=== PATIENT | female | born 1945 | race Caucasian/White ===

== ENCOUNTER 2020-01-14 12:12 | Outpatient (CLI) | payer MEDICARE, OTHER, SELFPAY ==
--- NOTE | 2020-01-14 12:21 | XR_ITS ---
WS: [id number] XR knee LT 3V* [id number] REASON FOR EXAM: pain FINDINGS: A low riding patellas seen. There is mild degenerate changes of the patellofemoral articulation. The meniscal spaces are well preserved. No fractures or other dyscrasias. XR/XR knee LT 3V* [id number] IMPRESSION: Patella Vergae (low riding patella) Mild degenerate changes of the patellofemoral articulation.
--- NOTE | 2020-01-14 12:21 | XR_ITS ---
WS: [id number] XR lumbar spine f/e only [id number] REASON FOR EXAM: low back pain FINDINGS: There is evidence of vertebral plasty of the L5 vertebra. The remaining disc spaces and vertebral bodies were normal. XR/XR lumbar spine f/e only [id number] IMPRESSION: Vertebral plasty changes L5.
== END 2020-01-14 12:13 | disposition home or self-care (01) ==
LOC: RAD 12:18
PROVIDERS: Family Provider Nurse Practitioner Family; PCP Nurse Practitioner Family; Visit Provider Nurse Practitioner Family
DX: M22.42 Chondromalacia patellae, left knee (principal); M17.12 Unilateral primary osteoarthritis, left knee; M54.5 Low back pain; M54.16 Radiculopathy, lumbar region
CPT/HCPCS: 72120; 73562

== ENCOUNTER 2020-02-12 12:27 | Outpatient (CLI) | payer MEDICARE, OTHER, SELFPAY ==
--- NOTE | 2020-02-12 12:33 | MR_ITS ---
WS: [id number] MRI LUMBAR SPINE NONCONTRAST TECHNIQUE: Sagittal T1, T2 and STIR imaging. Axial T1 and T2 imaging. CLINICAL INFORMATION: RADICULOPATHY, SITE UNSPECIFIED COMPARISON: None. FINDINGS: Mild lumbar curve. No acute compression. Prior vertebroplasty changes L5. Mild disc bulging L2-3 L4-5 and L5-S1. Slight anterolisthesis L4 on L5. L1-L2: Normal. L2-L3: Mild annular bulging. Mild facet arthropathy. Mild right and no significant left foraminal watson rowing. Spinal canal is patent. L3-L4: Mild annular bulging with a small right pericentral protrusion. Slight impingement right subar ticular recess and traversing L4 nerve root. Mild right and no significant left foraminal narrowing. Moderate facet arthropathy. L4-L5: Mild annular bulging with mild central canal stenosis and slight effacement of ventral thecal sac. Mild right and no significant left foraminal narrowing. Moderate facet arthropathy. L5-S1: Mild disc bulging with osteophytic ridging. Mild left greater than right foraminal narrowing. Moderate facet arthropathy. Spinal canal is patent. Visualized pelvic bony structures: Normal. Paravertebral soft tissues: Normal. MR/MR lumbar spine wo con* [id number] IMPRESSION: 1. Mild lumbar curve. Prior vertebroplasty changes L5. Slight anterolisthesis L4 on L5. 2. Mild central canal stenosis L4-5 due to slight anterolisthesis with disc b ulging and facet arthropathy. Narrowing of the right greater than left subartic ular recess with mild right foraminal narrowing. 3. Small right pericentral protrusion L3-4 impinges the right subarticular rec ess and traversing L4 nerve root. Mild right foraminal narrowing. 4. Disc osteophyte complex L5-S1 with slight effacement of ventral thecal sac. Mild left foraminal narrowing. 5. Moderate facet arthropathy L3-L5.
== END 2020-02-12 12:28 | disposition home or self-care (01) ==
LOC: RADWPI 12:32
PROVIDERS: Family Provider Nurse Practitioner Family; PCP Nurse Practitioner Family; Visit Provider Nurse Practitioner Family
DX: M54.9 Dorsalgia, unspecified (principal); M54.10 Radiculopathy, site unspecified; M51.36 Other intervertebral disc degeneration, lumbar region; M47.897 Other spondylosis, lumbosacral region; M48.061 Spinal stenosis, lumbar region without neurogenic claudication; M25.78 Osteophyte, vertebrae; M47.816 Spondylosis without myelopathy or radiculopathy, lumbar region
CPT/HCPCS: 72148

== ENCOUNTER → 2020-03-16 10:24 | Outpatient (BNVA) | payer MEDICARE, OTHER, SELFPAY | PROVIDERS: Family Provider Nurse Practitioner Family; PCP Nurse Practitioner Family; Referring Provider Nurse Practitioner Family; Visit Provider Specialist | DX: M25.569 Pain in unspecified knee (principal); M23.304 Other meniscus derangements, unspecified medial meniscus, left knee | CPT/HCPCS: 73560; 73565 ==

== ENCOUNTER → 2020-04-15 10:02 | Outpatient (BNVA) | payer MEDICARE, OTHER, SELFPAY | PROVIDERS: Family Provider Nurse Practitioner Family; PCP Nurse Practitioner Family; Referring Provider Specialist; Visit Provider Anesthesiology Pain Medicine | DX: M54.41 Lumbago with sciatica, right side (principal); M54.10 Radiculopathy, site unspecified | CPT/HCPCS: 99204 ==

== ENCOUNTER → 2020-04-20 14:19 | Outpatient (BNVA) | payer MEDICARE, OTHER, SELFPAY | PROVIDERS: Family Provider Nurse Practitioner Family; PCP Nurse Practitioner Family; Visit Provider Anesthesiology Pain Medicine | DX: M47.816 Spondylosis without myelopathy or radiculopathy, lumbar region (principal); M54.10 Radiculopathy, site unspecified; M54.9 Dorsalgia, unspecified; Z79.891 Long term (current) use of opiate analgesic | CPT/HCPCS: 64493; 64494; 64495; J2001; J3490 ==

== ENCOUNTER → 2020-05-05 10:16 | Outpatient (BNVA) | payer MEDICARE, OTHER, SELFPAY | PROVIDERS: Family Provider Nurse Practitioner Family; PCP Nurse Practitioner Family; Visit Provider Anesthesiology Pain Medicine | DX: M54.41 Lumbago with sciatica, right side (principal); M54.10 Radiculopathy, site unspecified; M79.604 Pain in right leg | CPT/HCPCS: 99213; 99214 ==

== ENCOUNTER → 2020-05-10 12:02 | Outpatient (BNVA) | payer MEDICARE, OTHER, SELFPAY | PROVIDERS: Family Provider Nurse Practitioner Family; PCP Nurse Practitioner Family; Visit Provider Anesthesiology Pain Medicine | DX: M47.816 Spondylosis without myelopathy or radiculopathy, lumbar region (principal); M54.9 Dorsalgia, unspecified; M54.10 Radiculopathy, site unspecified | CPT/HCPCS: 64635; 64636; 77003; J1030; J2001 ==

== ENCOUNTER → 2020-05-31 08:41 | Outpatient (BNVA) | payer MEDICARE, OTHER, SELFPAY | PROVIDERS: Family Provider Nurse Practitioner Family; PCP Nurse Practitioner Family; Visit Provider Anesthesiology Pain Medicine | DX: M47.816 Spondylosis without myelopathy or radiculopathy, lumbar region (principal); M54.41 Lumbago with sciatica, right side; M54.10 Radiculopathy, site unspecified | CPT/HCPCS: 99213 ==

== ENCOUNTER → 2020-06-09 10:59 | Outpatient (BNVA) | payer MEDICARE, OTHER, SELFPAY | PROVIDERS: Family Provider Nurse Practitioner Family; PCP Nurse Practitioner Family; Referring Provider Nurse Practitioner Family; Visit Provider Nurse Practitioner Family | DX: R32 Unspecified urinary incontinence (principal); N39.0 Urinary tract infection, site not specified | CPT/HCPCS: 80053; 81001 ==

== ENCOUNTER → 2020-06-23 16:11 | Outpatient (BNVA) | payer MEDICARE, OTHER, SELFPAY | PROVIDERS: Family Provider Nurse Practitioner Family; PCP Nurse Practitioner Family; Visit Provider Nurse Practitioner Family | DX: E03.9 Hypothyroidism, unspecified (principal); E55.9 Vitamin D deficiency, unspecified; E78.2 Mixed hyperlipidemia; Z79.899 Other long term (current) drug therapy; D64.9 Anemia, unspecified; R09.81 Nasal congestion | CPT/HCPCS: 36415; 80053; 80061; 81003; 82306; 82607; 83036; 83540; 84443; 85025 ==

== ENCOUNTER → 2020-08-03 14:47 | Outpatient (BNVA) | payer MEDICARE, OTHER, SELFPAY | PROVIDERS: Family Provider Nurse Practitioner Family; PCP Nurse Practitioner Family; Visit Provider Urology | DX: N39.0 Urinary tract infection, site not specified (principal) | CPT/HCPCS: 81001 ==

== ENCOUNTER → 2020-08-23 10:34 | Outpatient (BNVA) | payer MEDICARE, OTHER, SELFPAY | PROVIDERS: Family Provider Nurse Practitioner Family; PCP Nurse Practitioner Family; Visit Provider Nurse Practitioner Family | DX: R53.83 Other fatigue (principal); E55.9 Vitamin D deficiency, unspecified; E78.2 Mixed hyperlipidemia | CPT/HCPCS: 81003; 83036; 85025 ==

== ENCOUNTER → 2020-08-26 11:57 | Outpatient (BNVA) | payer MEDICARE, OTHER, SELFPAY | PROVIDERS: Family Provider Nurse Practitioner Family; PCP Nurse Practitioner Family; Visit Provider Nurse Practitioner Family | DX: R53.83 Other fatigue (principal); E78.2 Mixed hyperlipidemia; E55.9 Vitamin D deficiency, unspecified | CPT/HCPCS: 80053; 80061; 82306; 83735; 84100; 84443 ==

== ENCOUNTER 2020-09-09 08:36 | Outpatient (CLI) | payer MEDICARE, OTHER, SELFPAY ==
--- NOTE | 2020-09-09 08:30 | CT_ITS ---
WS: [id number] CT HEAD NONCONTRAST HISTORY: presyncope TECHNIQUE: Contiguous axial imaging performed through the brain in 2.5 mm imaging. Bone and soft tiss ue windows. All CT scans at [facility] use at least one of these dose optimization techniq ues: automated exposure control; mA and/or kV adjustment per patient size (includes targeted exams wh ere dose is matched to clinical indication); or iterative reconstruction. DLP: 925.91 mGycm COMPARISON: MRI 03/27/2019 No acute intracranial hemorrhage, midline shift or mass effect. Mild cerebral and cerebellar atrophy. There are several small lacunar infarcts in the cerebellum whic h were also present on the prior examination. No obvious progression. Small lacunar infarct in the e xternal capsule on the RIGHT. Ventricles: Normal size with no hydrocephalus. No significant calcification in the distal vertebral arteries of the basilar artery. Moderate calcifi cation in the intracranial carotid arteries. Paranasal sinuses: As visualized are clear. Mastoid air cells: Well pneumatized. Calvarium and scalp: Skull is intact with no soft tissue edema or swelling. CT/CT head wo con* [id number] IMPRESSION: 1. No acute hemorrhage or infarct. 2. Mild atrophy is stable. 3. Small bilateral lacunar infarcts in the cerebellum are stable since 03/27/20 19.
== END 2020-09-09 08:37 | disposition home or self-care (01) ==
PROVIDERS: PCP Nurse Practitioner Family; Visit Provider Family Medicine
DX: R55 Syncope and collapse (principal); G31.9 Degenerative disease of nervous system, unspecified; I63.81 Other cerebral infarction due to occlusion or stenosis of small artery
CPT/HCPCS: 70450

== ENCOUNTER → 2020-09-15 10:58 | Outpatient (BNVA) | payer MEDICARE, OTHER, SELFPAY | PROVIDERS: PCP Nurse Practitioner Family; Visit Provider Urology | DX: N39.0 Urinary tract infection, site not specified (principal); N39.41 Urge incontinence | CPT/HCPCS: 81003 ==

== ENCOUNTER 2020-09-30 13:13 | Outpatient (CLI) | payer MEDICARE, OTHER, SELFPAY ==
--- NOTE | 2020-09-30 13:30 | USCV_ITS ---
Tere Rosas Age: 75 Gender: F : 1945 Exam Date: 09/30/2020 13:34 Ordering Phys: Guillaume Jara MD Technologist: Lisa Padilla Exam Location: [facility] Indication: Weakness Risk Factors: Unknown Previous Vascular Surgery: None Right Brachial BP: / Left Brachial BP: / Right Left Velocity (cm/s) Spectral Plaque Velocity (cm/s) Spectral Plaque Syst/Diast Broadening Syst/Diast Broadening 111.50/19.20 Prox CCA 83.80 / 18.50 93.10/ 21.40 Mid CCA 77.40 / 20.20 59.50/ 15.90 Distal CCA 77.40 / 18.50 108.80/15.00 Prox ICA 67.10 / 13.60 85.30/ 24.40 Mid ICA 59.00 / 10.90 89.10/ 21.60 Distal ICA 65.10 / 17.10 68.70 ECA 50.45 1.17 ICA/CCA 0.87 Antegrade Vertebral Antegrade 48.20/ 12.40 cm/s 30.90/ 8.50 cm/s Tri Subclavian Tri 122.3 103.4 0 0 FINDINGS Comparison: none available. Waveforms are normal. No significant elevation of systolic or diastolic velocities. No significant amount of calcified plaque or intimal thickening identified. CONCLUSIONS Normal carotid doppler ultrasound. Dr. Beatriz Diallo DO (Electronically Signed) Final Date: 30 September 2020 14:34 S
== END 2020-09-30 13:14 | disposition home or self-care (01) ==
LOC: RAD 13:20
PROVIDERS: PCP Nurse Practitioner Family; Visit Provider Family Medicine
DX: R07.9 Chest pain, unspecified (principal); R55 Syncope and collapse; R53.1 Weakness
CPT/HCPCS: 93880

== ENCOUNTER → 2021-04-04 00:01 | Outpatient (BNVA) | payer MEDICARE, SELFPAY | PROVIDERS: PCP Nurse Practitioner Family; Visit Provider Nurse Practitioner Family | DX: E89.0 Postprocedural hypothyroidism (principal) | CPT/HCPCS: 84439; 84443; 86800 ==

== ENCOUNTER → 2021-05-19 09:17 | Outpatient (BNVA) | payer MEDICARE, SELFPAY | PROVIDERS: PCP Nurse Practitioner Family; Visit Provider Anesthesiology Pain Medicine | DX: G89.29 Other chronic pain (principal); M54.5 Low back pain; M54.10 Radiculopathy, site unspecified; M79.604 Pain in right leg; Z87.891 Personal history of nicotine dependence | CPT/HCPCS: 99214 ==

== ENCOUNTER → 2021-05-30 12:32 | Outpatient (BNVA) | payer MEDICARE, SELFPAY | PROVIDERS: PCP Nurse Practitioner Family; Visit Provider Anesthesiology Pain Medicine | DX: G89.29 Other chronic pain (principal); M47.816 Spondylosis without myelopathy or radiculopathy, lumbar region; M54.9 Dorsalgia, unspecified; Z87.891 Personal history of nicotine dependence | CPT/HCPCS: 64493; 64494; 64495; J3490 ==

== ENCOUNTER → 2021-06-06 13:36 | Outpatient (BNVA) | payer MEDICARE, SELFPAY | PROVIDERS: PCP Nurse Practitioner Family; Visit Provider Nurse Practitioner Family | DX: E55.9 Vitamin D deficiency, unspecified (principal); D64.9 Anemia, unspecified | CPT/HCPCS: 81003; 82306; 82607; 82728; 82746; 83550 ==

== ENCOUNTER → 2021-06-12 10:17 | Outpatient (BNVA) | payer MEDICARE, SELFPAY | PROVIDERS: PCP Nurse Practitioner Family; Visit Provider Anesthesiology Pain Medicine | DX: G89.29 Other chronic pain (principal); M47.816 Spondylosis without myelopathy or radiculopathy, lumbar region; M54.10 Radiculopathy, site unspecified; M79.604 Pain in right leg | CPT/HCPCS: 99214 ==

== ENCOUNTER → 2021-07-14 09:06 | Outpatient (BNVA) | payer MEDICARE, SELFPAY | PROVIDERS: PCP Nurse Practitioner Family; Visit Provider Anesthesiology Pain Medicine | DX: G89.29 Other chronic pain (principal); M47.816 Spondylosis without myelopathy or radiculopathy, lumbar region | CPT/HCPCS: 64634; 64635; 64636; J1030 ==

== ENCOUNTER → 2021-07-28 09:46 | Outpatient (BNVA) | payer MEDICARE, SELFPAY | PROVIDERS: PCP Nurse Practitioner Family; Visit Provider Anesthesiology Pain Medicine | DX: G89.29 Other chronic pain (principal); M51.17 Intervertebral disc disorders with radiculopathy, lumbosacral region; M47.816 Spondylosis without myelopathy or radiculopathy, lumbar region; M79.604 Pain in right leg | CPT/HCPCS: 99214 ==

== ENCOUNTER → 2021-08-10 10:38 | Outpatient (BNVA) | payer MEDICARE, SELFPAY | PROVIDERS: PCP Nurse Practitioner Family; Visit Provider Anesthesiology Pain Medicine | DX: G89.29 Other chronic pain (principal); M54.10 Radiculopathy, site unspecified; M47.816 Spondylosis without myelopathy or radiculopathy, lumbar region; M79.604 Pain in right leg | CPT/HCPCS: 99214 ==

== ENCOUNTER → 2021-08-15 11:00 | Outpatient (BNVA) | payer MEDICARE, SELFPAY | PROVIDERS: PCP Nurse Practitioner Family; Visit Provider Nurse Practitioner Family | DX: Z00.00 Encounter for general adult medical examination without abnormal findings (principal); E55.9 Vitamin D deficiency, unspecified; E78.2 Mixed hyperlipidemia; E89.0 Postprocedural hypothyroidism; I10 Essential (primary) hypertension; R53.83 Other fatigue; Z79.899 Other long term (current) drug therapy | CPT/HCPCS: 80053; 80061; 81003; 82306; 82607; 83036; 84443; 85025 ==

== ENCOUNTER → 2021-08-23 12:34 | Outpatient (BNVA) | payer MEDICARE, SELFPAY | PROVIDERS: PCP Nurse Practitioner Family; Visit Provider Anesthesiology Pain Medicine | DX: G89.29 Other chronic pain (principal); M54.16 Radiculopathy, lumbar region | CPT/HCPCS: 62323; J1040; J3490 ==

== ENCOUNTER → 2021-08-29 13:08 | Outpatient (BNVA) | payer MEDICARE, SELFPAY | PROVIDERS: PCP Nurse Practitioner Family; Referring Provider Nurse Practitioner Family; Visit Provider Internal Medicine | DX: C73 Malignant neoplasm of thyroid gland (principal); Z90.89 Acquired absence of other organs; E66.9 Obesity, unspecified; E89.0 Postprocedural hypothyroidism | CPT/HCPCS: 99204 ==

== ENCOUNTER → 2021-09-19 10:03 | Outpatient (BNVA) | payer MEDICARE, SELFPAY | PROVIDERS: PCP Nurse Practitioner Family; Visit Provider Anesthesiology Pain Medicine | DX: G89.29 Other chronic pain (principal); M47.816 Spondylosis without myelopathy or radiculopathy, lumbar region; M54.16 Radiculopathy, lumbar region; M19.90 Unspecified osteoarthritis, unspecified site; M25.562 Pain in left knee; M79.601 Pain in right arm | CPT/HCPCS: 99214 ==

== ENCOUNTER 2021-10-11 10:25 | Outpatient (CLI) | payer MEDICARE, SELFPAY ==
--- NOTE | 2021-10-11 11:45 | US_ITS ---
WS: [id number] ULTRASOUND THYROID TECHNIQUE: Ultrasound of the thyroid. CLINICAL INFORMATION: C73 - Malignant neoplasm of thyroid gland COMPARISON: Ultrasound FINDINGS: Thyroid: Postoperative changes thyroidectomy. Normal thyroidectomy bed. No evidence of cystic or yuliana d mass in the surgical bed Cervical lymphadenopathy: None. A few normal-appearing cervical lymph nodes. US/US thyroid [id number] IMPRESSION: Postoperative changes thyroidectomy with normal thyroidectomy bed. No suspiciou s findings.
== END 2021-10-11 10:26 | disposition home or self-care (01) ==
PROVIDERS: PCP Nurse Practitioner Family; Visit Provider Internal Medicine
DX: C73 Malignant neoplasm of thyroid gland (principal); E89.0 Postprocedural hypothyroidism
CPT/HCPCS: 76536

== ENCOUNTER 2021-10-11 10:29 | Outpatient (CLI) | payer MEDICARE, SELFPAY ==
--- NOTE | 2021-10-11 10:34 | XR_ITS ---
WS: [id number] AP standing knees, 10/11/2021 Clinical Data: M19.90 - Unspecified osteoarthritis, unspecified site Comparison: AP knees, left knee, 03/16/2020. Findings: There is medial joint compartment narrowing more noticeable on the left than the right. The lateral j oint compartment is preserved. The soft tissues are unremarkable. XR/[place] [id number] Impression: Bilateral medial joint compartment narrowing.
== END 2021-10-11 10:30 | disposition home or self-care (01) ==
LOC: RAD 10:32
PROVIDERS: PCP Nurse Practitioner Family; Visit Provider Anesthesiology Pain Medicine
DX: M19.90 Unspecified osteoarthritis, unspecified site (principal)
CPT/HCPCS: 73565

== ENCOUNTER 2021-10-24 09:46 | Outpatient (CLI) | payer MEDICARE, SELFPAY ==
--- NOTE | 2021-10-24 09:30 | MM_ITS ---
WS: [id number] BILATERAL SCREENING DIGITAL MAMMOGRAM WITH CAD HISTORY: Z12.31 - Encounter for screening mammogram for malignant ... COMPARISON: 08/31/2019 and 05/16/2018 Bilateral CC and MLO views submitted. Computer aided detection analyzed. Breast composition: There are scattered areas of fibroglandular density. No suspicious masses, microc alcifications or architectural distortion. MM/[place] [id number] IMPRESSION: BI-RADS: 1-Negative FOLLOW UP: 1 Year Follow-up
== END 2021-10-24 09:47 | disposition home or self-care (01) ==
LOC: RADSHAW 09:48
PROVIDERS: PCP Nurse Practitioner Family; Visit Provider Nurse Practitioner Family
DX: Z12.31 Encounter for screening mammogram for malignant neoplasm of breast (principal)
CPT/HCPCS: 77067

== ENCOUNTER → 2021-11-01 10:14 | Outpatient (BNVA) | payer MEDICARE, SELFPAY | PROVIDERS: PCP Nurse Practitioner Family; Visit Provider Internal Medicine | DX: C73 Malignant neoplasm of thyroid gland (principal); E89.0 Postprocedural hypothyroidism | CPT/HCPCS: 99214 ==

== ENCOUNTER → 2022-01-29 10:20 | Outpatient (BNVA) | payer MEDICARE, SELFPAY | PROVIDERS: PCP Nurse Practitioner Family; Visit Provider Internal Medicine | DX: C73 Malignant neoplasm of thyroid gland (principal); E89.0 Postprocedural hypothyroidism | CPT/HCPCS: 84432; 84439; 84443; 86800 ==

== ENCOUNTER → 2022-02-06 13:56 | Outpatient (BNVA) | payer MEDICARE, SELFPAY | PROVIDERS: PCP Nurse Practitioner Family; Visit Provider Internal Medicine | DX: E89.0 Postprocedural hypothyroidism (principal); C73 Malignant neoplasm of thyroid gland; R49.0 Dysphonia; F41.9 Anxiety disorder, unspecified; Z87.891 Personal history of nicotine dependence | CPT/HCPCS: 99214 ==

== ENCOUNTER 2022-04-03 08:45 | Outpatient (CLI) | payer MEDICARE, SELFPAY ==
--- NOTE | 2022-04-03 09:07 | FL_ITS ---
WS: [id number] Exam: FL barium swallow [id number] Date/Time of Exam: 04/03/2022 9:08 AM Reason For Exam: DYSPHONIA Fluoroscopy time: 1min 46.729450dpd minutes # of spot films: 11 Swallowing function at the level of oropharynx was normal. No sign of aspiration. There was no indica tion of esophageal stricture or mass. Mild tertiary spasm of the esophagus. No hiatal hernia or gastr oesophageal reflux. The esophagus is not displaced. FL/FL barium swallow [id number] IMPRESSION: 1. Mild diffuse esophageal spasm. No indication of esophageal stricture, mass o r significant motility disorder. No hiatal hernia. No gastroesophageal reflux o bserved during fluoroscopy.
--- NOTE | 2022-04-03 09:07 | CT_ITS ---
WS: [id number] CT NECK TECHNIQUE: Contrast-enhanced CT of the neck with coronal and sagittal reformatted images. CLINICAL INFORMATION: DYSPHONIA COMPARISON: CT 7 DLP: 270.[address] scans at [facility] use at least one of these dose optimization techniques: automated e xposure control; mA and/or kV adjustment per patient size (includes targeted exams where dose is matc hed to clinical indication); or iterative reconstruction. FINDINGS: Parotid glands are normal. Normal submandibular glands. Normal posterior nasopharynx. Normal paraphar yngeal fat. Normal posterior nasopharynx. No evidence of supraglottic or glottic mass. Normal vallecu la and piriform sinuses. Normal epiglottis. Normal subglottic airway. Prior postoperative changes tot al thyroidectomy. No suspicious lesions in the thyroidectomy bed. No cervical lymphadenopathy. Mild spondylitic changes cervical spine. Mastoid air cells well aerated. Paranasal sinuses well aerated. Chronic wedge-shaped infarct in the LEFT cerebellum partially visual ized. Prominent RIGHT jugulodigastric lymph node unchanged from previous within normal limits. Retrop haryngeal course to the distal common carotid arteries and carotid bulbs. Lung apices are well aerate d. CT/CT neck w con* [id number] IMPRESSION: 1. No suspicious neck findings. 2. Prior postoperative changes stable thyroidectomy. No suspicious lesions or fluid collection in the thyroidectomy bed. 3. No supraglottic or glottic mass. 4. Paranasal sinuses and mastoid air cells are well aerated where seen. 5. No cervical lymphadenopathy. 6. Partially evaluated chronic LEFT cerebellar infarct.
[2022-04-03] MEDS: iohexol 300 mg/mL 50 mL Btl IV (10:06)
[2022-04-03 10:07] LABS: Blood Urea Nitrogen 12 mg/dL (8-23)
== END 2022-04-03 08:46 | disposition home or self-care (01) ==
PROVIDERS: PCP Nurse Practitioner Family; Referring Provider Internal Medicine; Visit Provider Specialist
DX: R49.0 Dysphonia (principal); K22.4 Dyskinesia of esophagus
CPT/HCPCS: 70491; 74220; 82565; 84520

== ENCOUNTER → 2022-04-13 08:25 | Outpatient (BNVA) | payer MEDICARE, SELFPAY | PROVIDERS: PCP Nurse Practitioner Family; Visit Provider Internal Medicine | DX: C73 Malignant neoplasm of thyroid gland (principal); E89.0 Postprocedural hypothyroidism | CPT/HCPCS: 84439; 84443 ==

== ENCOUNTER → 2022-04-30 09:59 | Outpatient (BNVA) | payer MEDICARE, SELFPAY | PROVIDERS: PCP Nurse Practitioner Family; Visit Provider Internal Medicine | DX: E89.0 Postprocedural hypothyroidism (principal) | CPT/HCPCS: 84439 ==

== ENCOUNTER → 2022-05-02 13:46 | Outpatient (BNVA) | payer MEDICARE, SELFPAY | PROVIDERS: PCP Nurse Practitioner Family; Visit Provider Internal Medicine | DX: C73 Malignant neoplasm of thyroid gland (principal); E89.0 Postprocedural hypothyroidism; K22.4 Dyskinesia of esophagus; Z87.891 Personal history of nicotine dependence | CPT/HCPCS: 99214 ==

== ENCOUNTER 2022-06-20 09:53 | Outpatient (CLI) | payer MEDICARE, SELFPAY ==
--- NOTE | 2022-06-20 10:04 | MM_ITS ---
WS: [id number] DIAGNOSTIC LEFT DIGITAL TOMOSYNTHESIS MAMMOGRAPHY WITH CAD. LEFT breast ultrasound, limited. HISTORY: LEFT breast pain, diffuse. COMPARISON: 08/24/2015, 10/24/2021 Technique: CC, MLO and ML views. Breast composition: There are scattered areas of fibroglandular density. No mass or calcifications i dentified. No skin thickening. Difficult positioning the patient and very minimal pectoralis muscle w as included on the lateral projection. No nipple retraction. LEFT breast ultrasound, limited. Ultrasound directed to all 4 quadrants and in the area of pain as directed by the patient. No abnorma lity is identified. Normal 2-D and color Doppler. No mass. MM/[place] [id number] IMPRESSION: BI-RADS: 2-Benign FOLLOW UP: See Report No abnormalities LEFT breast by mammography or ultrasound. Return to annual scr eening.
== END 2022-06-20 09:54 | disposition home or self-care (01) ==
PROVIDERS: PCP Nurse Practitioner Family; Visit Provider Nurse Practitioner Family
DX: N64.4 Mastodynia (principal)
CPT/HCPCS: 76642; 77061

== ENCOUNTER → 2022-07-02 09:49 | Outpatient (BNVA) | payer MEDICARE, SELFPAY | PROVIDERS: PCP Nurse Practitioner Family; Visit Provider Internal Medicine | DX: E03.9 Hypothyroidism, unspecified (principal) | CPT/HCPCS: 83036; 84439; 84443 ==

== ENCOUNTER 2022-09-13 10:06 | Outpatient (CLI) | payer MEDICARE, SELFPAY ==
[2022-09-13 10:37] VITALS: BMI 38.0
--- NOTE | 2022-09-13 10:38 | ECG_ITS ---
[facility] Test Date: 2022-09-13 Pat Name: Tere Rosas Department: Room: Gender: Female Dry Pan Feeder: Ira Castellon : 1945 Requested By: Bc Murdock Order Number: [id number] Dwight MD: Noelle Le M.D. Interpretive Statements NAME OF STUDY: LEXISCAN SESTAMIBI STRESS TEST INDICATION: Chest Pain PROCEDURE: At the baseline, the blood pressure was 128/68 mmHg with a heart rate of 66 bpm. The electrocardiogram showed sinus rhythm, normal axis with normal ST and T's. The Lexiscan was infused over a period of 20 seconds. A total of 0.4 milligrams of Lexiscan was infused. The stress phase was continued for a total of 5 minutes. Heart rate at the end of the stress phase was 86 beats per min with a blood pressure 116/56 mmHg. The EKG at the peak infusion revealed no significant ST-T wave changes. The study was terminated due to protocol completion. Sestamibi was injected 20 seconds after the Lexiscan infusion. Blood pressure at the end of the recovery phase was 124/47 mmHg with a heart rate of 82 beats per minute. CONCLUSION: 1. Normal EKG response to LexiScan infusion. 2. No LexiScan induced chest pain or cardiac arrhythmia. 3. Normal blood pressure and heart rate response. 4. Sestamibi/sestamibi perfusion scan pending; see separate report. Electronically Signed On 09-16-2022 10:54:02 LABORATORY PHLEBOTOMIST by Noelle Le M.D. [id number]
--- NOTE | 2022-09-13 10:40 | NMCV_ITS ---
NM akil perf SPECT r/s* [id number] Tere Rosas Age: 77 Gender: F : 1945 Exam Date: 09/13/2022 10:40 Ordering Phys: Bc Murdock Technologist: MONROE Jones Exam Location: [facility] Indications: CHEST PAIN STRESS TEST Please see separate stress test report in [facility] for full findings IMAGE PROTOCOL Rest/Stress 1 Lexiscan Day Radiopharmaceutical Dose (mCi) Administration Site Administered by Rest: Tc-99m 10.9 IV MONROE Reddy Sestamibi Stress:Tc-99m 33.0 IV MONROE Reddy Sestamibi Rest: 13-Sep-2022 60 Discovery 630 Stress: 13-Sep-2022 30 Discovery 630 0.4mg Lexiscan. Images obtained in supine and prone position. SPECT RESULTS Technical Quality: Excellent Raw Data Analysis: Subdiaphragmatic attenuation artifact. Image Corrections: No attenuation or motion correction applied Summed Stress Score: 2 Summed Rest Score: 5 Summed Difference Score: 1 PERFUSION FINDINGS Small size perfusion abnormality of mild severity of mid to apical inferior and apical lateral wall on rest images with improved tracer uptake and stress images. This is suggestive of attenuation artifact. FUNCTIONAL RESULTS (calculated via Gated SPECT) Stress Image LV EF (%): 72 Stress EDV (mL):78 TID: 1 Stress ESV (mL):22 FUNCTIONAL FINDINGS: The left ventricle is normal in size. Transient Ischemia Dilatation of 1. The left ventricular ejection fraction is normal with a value of 72%. There is normal left ventricular wall thickening. Normal end-diastolic and end-systolic volumes. IMPRESSIONS 1. Myocardial perfusion imaging is normal. 2. Overall left ventricular systolic function is normal without regional wall motion abnormalities, LVEF=72%. 3. EKG portion of the study will be reported separately. Noelle Le MD (Electronically Signed) Final Date: 16 September 2022 12:13 S
[2022-09-13] MEDS: regadenoson 0.4 Mg/5 ml Syringe IVP (12:00)
[2022-09-13 12:10] VITALS: BP 124/42; PULSE 80
== END 2022-09-13 10:07 | disposition home or self-care (01) ==
PROVIDERS: PCP Nurse Practitioner Family; Visit Provider Nurse Practitioner Family
DX: R07.9 Chest pain, unspecified (principal)
CPT/HCPCS: 78452; 93017; A9500; J2785

== ENCOUNTER → 2022-12-21 10:21 | Outpatient (BNVA) | payer MEDICARE, SELFPAY | PROVIDERS: PCP Nurse Practitioner Family; Visit Provider Internal Medicine | DX: E78.2 Mixed hyperlipidemia (principal); E89.0 Postprocedural hypothyroidism; E55.9 Vitamin D deficiency, unspecified; Z79.899 Other long term (current) drug therapy; E03.9 Hypothyroidism, unspecified | CPT/HCPCS: 83036; 84439; 84443; 84480 ==

== ENCOUNTER 2022-12-24 09:35 | Outpatient (CLI) | payer MEDICARE, SELFPAY ==
--- NOTE | 2022-12-24 09:42 | MM_ITS ---
WS: [id number] SCREENING DIGITAL TOMOSYNTHESIS MAMMOGRAM WITH CAD HISTORY: SCREENING COMPARISON: 06/20/2022, 10/24/2021 Bilateral CC and MLO with tomosynthesis views submitted. Synthetic mammography reviewed. Computer aid ed detection analyzed. Breast composition: There are scattered areas of fibroglandular density. No suspicious masses, microc alcifications or architectural distortion. MM/[place] [id number] IMPRESSION: BI-RADS: 1-Negative FOLLOW UP: 1 Year Follow-up
== END 2022-12-24 09:36 | disposition home or self-care (01) ==
LOC: RAD 09:39
PROVIDERS: PCP Nurse Practitioner Family; Visit Provider Nurse Practitioner Family
DX: Z12.31 Encounter for screening mammogram for malignant neoplasm of breast (principal); E89.0 Postprocedural hypothyroidism; C73 Malignant neoplasm of thyroid gland; K22.4 Dyskinesia of esophagus; Z79.890 Hormone replacement therapy
CPT/HCPCS: 77063; 77067; 99214

== ENCOUNTER → 2023-03-01 08:57 | Outpatient (BNVA) | payer MEDICARE, SELFPAY | PROVIDERS: PCP Nurse Practitioner Family; Visit Provider Internal Medicine | DX: Z79.899 Other long term (current) drug therapy (principal); E78.2 Mixed hyperlipidemia; E55.9 Vitamin D deficiency, unspecified; E89.0 Postprocedural hypothyroidism; K22.4 Dyskinesia of esophagus; C73 Malignant neoplasm of thyroid gland | CPT/HCPCS: 83036; 84432; 84439; 84443; 86800 ==

== ENCOUNTER 2023-03-13 12:56 | Emergency (ER) | payer MEDICARE, SELFPAY ==
[2023-03-13 13:17] VITALS: BP 136/85; PULSE 80; RESP 17; TEMP 36.7; O2SAT 96; BMI 36.6
[2023-03-13 14:13] LABS: Basophils # 0.1 10^3/uL (0.0-0.1); Basophils % 0.8 %; Eosinophils # 0.3 10^3/uL (0.0-0.8); Hematocrit 44.5 % (37.0-47.0); Hemoglobin 14.1 g/dL (11.5-15.3); Lymphocytes # 2.5 10^3/uL (0.8-4.8); Lymphocytes % 29.3 %; Mean Corpuscular HGB Conc 31.7 g/dL (30.0-36.0); Mean Corpuscular Hemoglobin 29.4 pg (28.0-34.0); Mean Corpuscular Volume 92.9 fl (81-99); Mean Platelet Volume 9.7 fL (7.4-10.4); Monocytes # 0.9 10^3/uL (0.2-0.9); Monocytes % 10.9 %; Neutrophils # 4.59 10^3/uL (1.8-7.7); Neutrophils % 54.5 %; Nucleated Red Blood Cells % 0 %; Platelet Count 327 10^3/cmm (130-400); Red Blood Count 4.79 10^6/uL (4.1-5.3); Red Cell Distribution Width 13.3 % (12.1-15.1); White Blood Count 8.4 10^3/uL (4.0-10.0)
[2023-03-13 14:34] LABS: Alanine Aminotransferase 28 U/L (0-33); Alkaline Phosphatase 126 U/L (35-105); Anion Gap 13.2 (5-19); Aspartate Amino Transferase 30 U/L (0-32); Blood Urea Nitrogen 11 mg/dL (8-23); Calcium 9.2 mg/dL (8.5-10.5); Carbon Dioxide 28 mmol/L (22-29); Chloride 102 mmol/L (98-107); Globulin 2.8 g/dL (1.3-4.6); Glucose 80 mg/dL (65-115); Osmolality Calculated 286 mOsm/kg (285-295); Potassium 4.2 mmol/L (3.5-5.1); Sodium 139 mmol/L (136-145); Total Bilirubin 0.4 mg/dL (0.15-1.2); Total Protein 6.8 g/dL (6.6-8.7)
[2023-03-13 17:00] VITALS: BP 153/98; PULSE 66; O2SAT 97
--- NOTE | 2023-03-13 17:12 | W.ED.HA ---
HPI - Headache General: Chief Complaint: Headache Stated Complaint: Collette sent for headaches Time Seen by Provider: 03/13/23 17:12 History of Present Illness: 78-year-old female comes in today with persistent headache for the last 1 week. Patient reports increasing headaches over the last 3 weeks. Patient appears nontoxic. No focal deficits are noted on initial exam. Patient moves all extremities well. No facial drooping is noted. Patient reports the headache started in her neck and then goes up into her head. Vital signs are normal. Patient does have a history of tachycardia, depression, surgically acquired hypothyroidism, coronary artery disease, spinal degeneration, fibromyalgia, chronic back pain. Associated symptoms: Reports nausea; Deny chest pain, fever(s), rash or vomiting Review of Systems General: Reports: 10 or more systems reviewed and unremarkable except in HPI and below Const: Denies: fever(s) Card: Denies: chest pain Resp: Denies: dyspnea GI: Reports: nausea; Denies: vomiting : Denies: difficulty voiding Musc: Reports: neck pain Skin/Breast: Denies: rash Neuro: Reports: headache(s) Psych: Denies: anxiety or depression PFSH ED PFSH: Medical History Anemia Anxiety and depression Anxiety and depression Back pain with radiculopathy Breast cancer screening by mammogram CAD (coronary artery disease) Cerebellar stroke Chronic back pain Chronic idiopathic constipation Chronic knee pain Chronic shoulder pain Chronic UTI Colon cancer screening Colon cancer screening declined Compression fracture of L5 vertebra with routine healing Degenerative lumbar spinal stenosis Essential hypertension Facet arthropathy, lumbar Facet arthropathy, lumbar Fatigue Fibromyalgia Hypothyroidism IBS (irritable bowel syndrome) Insomnia Mixed hyperlipidemia Nasal congestion Obesity Otitis media Patellar disorder Post-surgical hypothyroidism Recurrent UTI Spondylolysis of lumbar region Thyroid cancer Thyroid carcinoma Urgency incontinence Urgency incontinence Vitamin B 12 deficiency Vitamin D deficiency Vitamin D deficiency Surgical History S/P cholecystectomy (~2004) S/P D&C (status post dilation and curettage) (~1965) S/P hysterectomy S/P knee surgery (~2017) Left S/P kyphoplasty (~09/02/18) S/P rotator cuff repair (~2012) Left S/P tonsillectomy and adenoidectomy As a child S/P tubal ligation Age 27 Family History Brother Cancer Throat Father Stroke Mother Heart murmur Social History Smoking and tobacco status: never smoked Alcohol intake: current Alcohol intake frequency: holidays/special occasions only Substance/Drug Use: never Lives independently: Yes Marital status: Life Partner Current occupational status: retired Physical Exam Const: COMMON NORMALS: alert HENMT: COMMON NORMALS: normocephalic HEAD & SCALP: normocephalic Neck/C-Spine: CERVICAL SPINE: Yes Cervical spine tenderness and Yes Paracervical muscle tenderness Resp: COMMON NORMALS: normal respiratory effort and clear to auscultation bilaterally AUSCULTATION: clear to auscultation bilaterally Cardio: COMMON NORMALS: regular rate and regular rhythm RATE: regular rate RHYTHM: regular rhythm GI: COMMON NORMALS: Soft to palpation PALPATION: Yes Soft to palpation : COMMON NORMALS: Yes no CVA tenderness BLADDER/KIDNEY EXAM: Yes no CVA tenderness Back/Pelvis: COMMON NORMALS: no CVA tenderness Extremity: COMMON NORMALS: no pedal edema Neuro: SENSORIUM/ORIENTATION: Yes alert Skin: COMMON NORMALS: turgor normal GENERAL SKIN EXAM: turgor normal Course Vital Signs: Vital signs: Vital Signs Temperature 98.0 F 03/13/23 13:17 Pulse Rate 64 03/13/23 18:52 Respiratory Rate 17 03/13/23 13:17 Blood Pressure 174/88 03/13/23 18:52 Pulse Oximetry 94 03/13/23 18:52 Oxygen Delivery Me thod Room Air 03/13/23 18:52 MDM - Headache Medical Decision Making Patient comes in today for persistent headache for the last 4 days. Patient reports increasing headaches over the last month. Patient was referred to the ER for further evaluation by primary care to rule out intracranial bleeding or other causes for her headache. On exam patient is alert and oriented. Patient has no focal neural deficits. Patient moves all extremities well. Vital signs are normal. Differential diagnosis includes but not limited to intracranial bleeding, stroke syndrome, intervertebral disc disease, facet arthritis, tension headache, migraine. Patient was treated with a headache cocktail with Reglan, ketorolac, and dexamethasone. Patient had resolution of headache. CT of the head was unremarkable, CT of the neck showed degenerative disc disease, and concern for pulmonary edema. No signs of severe distress was noted. Blood pressure was noted to be slightly elevated in the 170s but also range down to the 130s. I will place patient on some hydrochlorothiazide 12-1/2 mg daily for the next 3-5 days for concern of some mild pulmonary edema. Patient was reassured but recommended to follow-up with primary care for further evaluation as needed. Patient reported understanding of care plan. Patient was stable with improvement of headache and was released to home. Lab Data 03/13/23 14:00 03/13/23 14:00 Radiology Impressions Cervical Spine CT 03/13/23 17:16 IMPRESSION: 1. No acute osseous injury. 2. Ground-glass densities are seen in the lung apices. Correlate for possible pulmonary vascular congestion. Head CT 03/13/23 17:16 IMPRESSION: No acute intracranial abnormality. Laboratory Results WBC 8.4 10^3/uL (4.0-10.0) 03/13/23 14:00 RBC 4.79 10^6/uL (4.1-5.3) 03/13/23 14:00 Hgb 14.1 g/dL (11.5-15.3) 03/13/23 14:00 Hct 44.5 % (37.0-47.0) 03/13/23 14:00 MCV 92.9 fl (81-99) 03/13/23 14:00 MCH 29.4 pg (28.0-34.0) 03/13/23 14:00 MCHC 31.7 g/dL (30.0-36.0) 03/13/23 14:00 RDW 13.3 % (12.1-15.1) 03/13/23 14:00 Plt Count 327 10^3/cmm (130-400) 03/13/23 14:00 MPV 9.7 fL (7.4-10.4) 03/13/23 14:00 Neut % (Auto) 54.5 % 03/13/23 14:00 Lymph % (Auto) 29.3 % 03/13/23 14:00 [place] % (Auto) 10.9 % 03/13/23 14:00 Eos % (Auto) 4.0 % 03/13/23 14:00 Baso % (Auto) 0.8 % 03/13/23 14:00 Neut # (Auto) 4.59 10^3/uL (1.8-7.7) 03/13/23 14:00 Lymph # (Auto) 2.5 10^3/uL (0.8-4.8) 03/13/23 14:00 [place] # (Auto) 0.9 10^3/uL (0.2-0.9) 03/13/23 14:00 Eos # (Auto) 0.3 10^3/uL (0.0-0.8) 03/13/23 14:00 Baso # (Auto) 0.1 10^3/uL (0.0-0.1) 03/13/23 14:00 Nucleated RBC % (auto) 0 % 03/13/23 14:00 Nucleated RBCs # 0.0 /100WBC 03/13/23 14:00 Sodium 139 mmol/L (136-145) 03/13/23 14:00 Potassium 4.2 mmol/L (3.5-5.1) 03/13/23 14:00 Chloride 102 mmol/L (98-107) 03/13/23 14:00 Carbon Dioxide 28 mmol/L (22-29) 03/13/23 14:00 Anion Gap 13.2 (5-19) 03/13/23 14:00 BUN 11 mg/dL (8-23) 03/13/23 14:00 Creatinine 0.7 mg/dL (0.5-0.9) 03/13/23 14:00 GFR Calculation Not Reportable 03/13/23 14:00 Glucose 80 mg/dL (65-115) 03/13/23 14:00 Calculated Osmolality 286 mOsm/kg (285-295) 03/13/23 14:00 Calcium 9.2 mg/dL (8.5-10.5) 03/13/23 14:00 Total Bilirubin 0.4 mg/dL (0.15-1.2) 03/13/23 14:00 AST 30 U/L (0-32) 03/13/23 14:00 ALT 28 U/L (0-33) 03/13/23 14:00 Alkaline Phosphatase 126 U/L (35-105) H 03/13/23 14:00 Total Protein 6.8 g/dL (6.6-8.7) 03/13/23 14:00 Albumin 4.0 g/dL (3.5-5.2) 03/13/23 14:00 Globulin 2.8 g/dL (1.3-4.6) 03/13/23 14:00 Urine Color Yellow (Yellow) 03/13/23 17:31 Urine Appearance Sl cloudy (CLEAR) A 03/13/23 17:31 Urine pH 6 (5-7) 03/13/23 17:31 Ur Specific [place] 1.020 (1.005-1.030) 03/13/23 17:31 Urine Protein Neg (Negative) 03/13/23 17:31 Urine Glucose (UA) Norm (Normal) 03/13/23 17:31 Urine Ketones Negative (Negative) 03/13/23 17:31 Urine Blood Neg (Negative) 03/13/23 17:31 Urine Nitrate Negative (Negative) 03/13/23 17:31 Urine Bilirubin Neg (Negative) 03/13/23 17:31 Urine Urobilinogen Norm mg/dL (Negative) 03/13/23 17:31 Ur Leukocyte Esterase Negative (Negative) 03/13/23 17:31 Urine RBC 0-4 /hpf (0-2) H 03/13/23 17:31 Urine WBC 0-4 /hpf (0-5) H 03/13/23 17:31 Ur Squamous Epith Cells 10-15 /hpf (0-5) H 03/13/23 17:31 Amorphous Sediment Not Reportable 03/13/23 17:31 Urine Bacteria 1+ /hpf (NONE) H 03/13/23 17:31 Discharge Plan Discharge Patient Disposition: Home Clinical Impression: Tension headache, Pulmonary edema cardiac cause Condition: Stable Prescriptions: New hydrochlorothiazide 12.5 mg capsule 12.5 mg PO DAILY Qty: 5 0RF No Action duloxetine 20 mg capsule,delayed release(DR/EC) 20 mg PO BID 90 Days Qty: 180 1RF gabapentin 300 mg capsule 300 mg PO TID Qty: 90 5RF diclofenac sodium [Voltaren Arthritis Pain] 1 % gel 4 g topical QID Qty: 100 0RF Rx Instructions: apply to knee trazodone 50 mg tablet 25 mg PO .hs Qty: 45 2RF metoprolol tartrate 25 mg tablet 12.5 mg PO BID Qty: 15 1RF mirabegron 50 mg tablet extended release 24 hr 50 mg PO DAILY 30 Days Qty: 30 5RF levothyroxine 125 mcg tablet 125 mcg PO DAILY Qty: 90 0RF Rx Instructions: Take 1 tablet Saturday - Saturday, Take half tablet on Saturday Discharge Orders: Discharge ED (Routine); Ordered 03/13/23 Ordered By: Jeremie Jason Referrals: Bc Murdock FNP [Primary Care Provider] - Discharge Diet: Usual diet Discharge Activity: Increase activity as tolerated Patient Instructions: General Headache (ED) Activity Restrictions/Additional Instructions: Follow-up with RENE Pierce, for further long-term treatment for headaches. Use hydrochlorthiazide 1 capsule/tablet daily for treatment of fluid on the lung for the next 3 to 5 days. Use acetaminophen or ibuprofen as needed for pain or headache. Continue with routine medications otherwise as directed. Return to ER for worsening symptoms such as increasing shortness of breath, chest pain, or new concerns. Coding Level of Care Code ED Surveillance Monitor for Manuel Kuhn
--- NOTE | 2023-03-13 17:16 | CTR_ITS ---
PROCEDURE INFORMATION: Exam: CT Head Without Contrast Exam date and time: 03/13/2023 6:19 PM Age: 78 years old Clinical indication: Pain; Headache; Migraine; Aura effect not specified; Additional info: Persistent headache TECHNIQUE: Imaging protocol: Computed tomography of the head without contrast. Radiation optimization: All CT scans at this facility use at least one of these dose optimization techniques: automated exposure control; mA and/or kV adjustment per patient size (includes targeted exams where dose is matched to clinical indication); or iterative reconstruction. REPORTING DATA: Count of CT and Cardiac NM exams in prior 12 months: This patient has received 2 known CTs and 0 known cardiac nuclear medicine studies in the 12 months prior to the current study. COMPARISON: CT head wo con* [id number] 09/09/2020 9:06 AM RADIATION DOSE METRICS: Total DLP (mGy-cm): 1106.15 FINDINGS: Brain: No acute infarct. No hemorrhage. Stable involutional changes of the brain. No mass effect. 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 Right external capsule chronic lacunar-type infarcts are also unchanged. Cerebral ventricles: Stable ventricular size. No ventriculomegaly. Paranasal sinuses: Visualized sinuses are unremarkable. No fluid levels. Mastoid air cells: Visualized mastoid air cells are well aerated. Bones/joints: Unremarkable. No acute fracture. Soft tissues: Unremarkable. CT/CT head wo con* [id number] IMPRESSION: No acute intracranial abnormality.
--- NOTE | 2023-03-13 17:16 | CTR_ITS ---
PROCEDURE INFORMATION: Exam: CT Cervical Spine Without Contrast Exam date and time: 03/13/2023 6:19 PM Age: 78 years old Clinical indication: Neck pain; Additional info: Neck pain, headache, decreased rom TECHNIQUE: Imaging protocol: Computed tomography of the cervical spine without contrast. Radiation optimization: All CT scans at this facility use at least one of these dose optimization techniques: automated exposure control; mA and/or kV adjustment per patient size (includes targeted exams where dose is matched to clinical indication); or iterative reconstruction. REPORTING DATA: Count of CT and Cardiac NM exams in prior 12 months: This patient has received 2 known CTs and 0 known cardiac nuclear medicine studies in the 12 months prior to the current study. COMPARISON: CT neck w con* [id number] 04/03/2022 9:57 AM RADIATION DOSE METRICS: Total DLP (mGy-cm): 265.4 FINDINGS: Bones/joints: Near anatomic alignment. No acute fracture. Multilevel degenerative changes are present. No severe spinal canal stenosis. Lungs: Ground-glass densities are seen in the lung apices. Thyroid: Thyroidectomy changes are stable. Soft tissues: Unremarkable. CT/CT cervical spin wo con* [id number] IMPRESSION: 1. No acute osseous injury. 2. Ground-glass densities are seen in the lung apices. Correlate for possible pulmonary vascular congestion.
[2023-03-13 17:30] VITALS: PULSE 70; O2SAT 94
[2023-03-13] MEDS: sodium chloride 0.9% 250 ML IV (17:35)
[2023-03-13] MEDS: metoclopramide 5 mg/mL SDV 2 mL 10 MG IVP (17:35)
[2023-03-13] MEDS: ketorolac 30 mg/mL INJ 15 MG IVP (17:35)
[2023-03-13] MEDS: dexamethasone 4 mg/mL INJ 8 MG IVP (17:35)
[2023-03-13 18:03] LABS: Add Urine Microscopic? YES; Bilirubin Urine Neg (Negative); Blood Urine Neg (Negative); Glucose Urine UA Norm (Normal); Ketones Urine Negative (Negative); Leukocyte Esterase Urine Negative (Negative); Nitrate Urine Negative (Negative); Protein Urine Neg (Negative); Urine Color Yellow (Yellow); Urobilinogen Urine Norm (Negative); pH Urine 6 (5-7)
[2023-03-13 18:07] LABS: RBC Urine 0-4 /hpf (0-2); WBC Urine 0-4 /hpf (0-5)
[2023-03-13 18:08] LABS: Bacteria Urine 1+ /hpf
[2023-03-13] MEDS: sodium chloride 0.9% 250 ML 999 ML IV (18:50)
[2023-03-13 18:52] VITALS: BP 174/88; PULSE 64; O2SAT 94
[2023-03-13 19:44] VITALS: BP 147/86
== END 2023-03-13 19:46 | disposition home or self-care (01) ==
PROVIDERS: Emergency Medicine; Emergency Provider Nurse Practitioner Family; PCP Nurse Practitioner Family
DX: G44.209 Tension-type headache, unspecified, not intractable (principal); J81.1 Chronic pulmonary edema; I25.10 Atherosclerotic heart disease of native coronary artery without angina pectoris; Z86.73 Personal history of transient ischemic attack (TIA), and cerebral infarction without residual deficits; I10 Essential (primary) hypertension; E78.2 Mixed hyperlipidemia; Z85.850 Personal history of malignant neoplasm of thyroid
CPT/HCPCS: 36415; 70450; 72125; 80053; 81001; 85025; 96361; 96374; 96375; 99285; J1100; J1885; J2765; J7030; J7050

== ENCOUNTER 2023-03-28 10:18 | Outpatient (CLI) | payer MEDICARE, SELFPAY ==
--- NOTE | 2023-03-28 10:42 | XR_ITS ---
WS: [email or web address] Chest 2 views, 03/28/2023 Clinical Data: R91.8 - Other nonspecific abnormal finding of lung field Comparison: PA chest with rib detail, 05/22/2019 Findings: No nodules, masses or effusions are seen. The heart is normal. The pulmonary vascularity is not increased. No pneumonia or pneumothorax is seen. The aortic arch and descending thoracic aorta s how mild tortuosity. There are cholecystectomy clips in the right upper quadrant. XR/XR chest 2V* [id number] Impression: Atherosclerosis.
== END 2023-03-28 10:19 | disposition home or self-care (01) ==
PROVIDERS: PCP Nurse Practitioner Family; Visit Provider Registered Nurse
DX: E89.0 Postprocedural hypothyroidism (principal); R91.8 Other nonspecific abnormal finding of lung field; K22.4 Dyskinesia of esophagus; Z85.850 Personal history of malignant neoplasm of thyroid; J39.2 Other diseases of pharynx; Z79.899 Other long term (current) drug therapy; C73 Malignant neoplasm of thyroid gland; Z79.890 Hormone replacement therapy
CPT/HCPCS: 36415; 71046; 84439; 84443; 99214

== ENCOUNTER → 2023-04-29 11:18 | Outpatient (BNVA) | payer MEDICARE, SELFPAY | PROVIDERS: PCP Nurse Practitioner Family; Visit Provider Registered Nurse | DX: R32 Unspecified urinary incontinence (principal) | CPT/HCPCS: 81000 ==

== ENCOUNTER → 2023-06-03 09:25 | Outpatient (BNVA) | payer MEDICARE, SELFPAY | PROVIDERS: PCP Nurse Practitioner Family; Visit Provider Internal Medicine | DX: E89.0 Postprocedural hypothyroidism (principal) | CPT/HCPCS: 84439; 84443 ==

== ENCOUNTER → 2023-06-04 10:50 | Outpatient (BNVA) | payer MEDICARE, SELFPAY | PROVIDERS: PCP Nurse Practitioner Family; Visit Provider Internal Medicine | DX: E89.0 Postprocedural hypothyroidism (principal); Z79.890 Hormone replacement therapy; C73 Malignant neoplasm of thyroid gland; G25.2 Other specified forms of tremor | CPT/HCPCS: 99214 ==

== ENCOUNTER → 2023-07-16 11:15 | Outpatient (BNVA) | payer MEDICARE, SELFPAY | PROVIDERS: PCP Nurse Practitioner Family; Visit Provider Registered Nurse | DX: N39.0 Urinary tract infection, site not specified (principal) | CPT/HCPCS: 81000; 87086 ==

== ENCOUNTER → 2023-08-02 09:07 | Outpatient (BNVA) | payer MEDICARE, SELFPAY | PROVIDERS: PCP Registered Nurse; Visit Provider Registered Nurse | DX: L02.31 Cutaneous abscess of buttock (principal); E89.0 Postprocedural hypothyroidism; C73 Malignant neoplasm of thyroid gland; K22.4 Dyskinesia of esophagus; J39.2 Other diseases of pharynx; Z79.890 Hormone replacement therapy | CPT/HCPCS: 36415; 84432; 84439; 84443; 86800; 87070; 87075; 87077; 87184; 87205; 99214 ==

== ENCOUNTER → 2023-08-06 13:50 | Outpatient (BNVA) | payer MEDICARE, SELFPAY | PROVIDERS: PCP Registered Nurse; Visit Provider Nurse Practitioner Family | DX: I96 Gangrene, not elsewhere classified (principal); S30.860A Insect bite (nonvenomous) of lower back and pelvis, initial encounter; L08.9 Local infection of the skin and subcutaneous tissue, unspecified; W57.XXXA Bitten or stung by nonvenomous insect and other nonvenomous arthropods, initial encounter; L03.317 Cellulitis of buttock | CPT/HCPCS: 97597; 99213; A6212 ==

== ENCOUNTER → 2023-08-13 11:14 | Outpatient (BNVA) | payer MEDICARE, SELFPAY | PROVIDERS: PCP Registered Nurse; Visit Provider Nurse Practitioner Family | DX: I96 Gangrene, not elsewhere classified (principal); L98.412 Non-pressure chronic ulcer of buttock with fat layer exposed; L03.317 Cellulitis of buttock | CPT/HCPCS: 11042; A6210; A6219 ==

== ENCOUNTER 2023-08-15 13:00 | Outpatient (CLI) | payer MEDICARE, SELFPAY ==
--- NOTE | 2023-08-15 13:15 | US_ITS ---
WS: [email or web address] ULTRASOUND THYROID TECHNIQUE: Ultrasound of the thyroid. CLINICAL INFORMATION: thyroid us COMPARISON: None. FINDINGS: Thyroid: Prior postoperative changes total thyroidectomy. Thyroid bed is normal in appearance. No estelle dence of recurrent mass or lesion in the thyroid bed. Cervical lymphadenopathy: None. IMPRESSION: 1. Prior postoperative changes total thyroidectomy. 2. No evidence of recurrent disease.
== END 2023-08-15 13:01 | disposition home or self-care (01) ==
LOC: RAD 13:02
PROVIDERS: PCP Registered Nurse; Visit Provider Internal Medicine
DX: C73 Malignant neoplasm of thyroid gland (principal); E89.0 Postprocedural hypothyroidism
CPT/HCPCS: 11042; 76882; A6210; A6219

== ENCOUNTER → 2023-08-20 09:46 | Outpatient (BNVA) | payer MEDICARE, SELFPAY | PROVIDERS: PCP Registered Nurse; Visit Provider Nurse Practitioner Family | DX: I96 Gangrene, not elsewhere classified (principal); L98.412 Non-pressure chronic ulcer of buttock with fat layer exposed; L03.317 Cellulitis of buttock | CPT/HCPCS: 97597; A6210; A6212 ==

== ENCOUNTER → 2023-08-27 08:43 | Outpatient (BNVA) | payer MEDICARE, SELFPAY | PROVIDERS: PCP Registered Nurse; Visit Provider Nurse Practitioner Family | DX: Z09 Encounter for follow-up examination after completed treatment for conditions other than malignant neoplasm (principal); Z87.2 Personal history of diseases of the skin and subcutaneous tissue | CPT/HCPCS: 99212 ==

== ENCOUNTER 2023-12-24 15:24 | Outpatient (CLI) | payer MEDICARE, SELFPAY ==
[2023-12-24 17:15] LABS: Free T4 Free Thyroxine 1.36 ng/dL (0.82-1.77); Thyroid Stimulating Hormone 3.27 uIU/mL (0.27-4.20)
[2023-12-25 10:50] LABS: T3 Total 109 ng/dL (76-181)
[2023-12-26 08:14] LABS: Thyroglobulin AB <1 IU/mL (< or = 1)
[2024-01-01 13:39] LABS: Thyroglobulin Level <0.4 ng/mL
== END 2023-12-24 15:25 | disposition home or self-care (01) ==
LOC: LAB 15:25
PROVIDERS: PCP Registered Nurse; Visit Provider Internal Medicine
DX: E03.9 Hypothyroidism, unspecified (principal); C73 Malignant neoplasm of thyroid gland
CPT/HCPCS: 36415; 84432; 84439; 84443; 84480; 86800

== ENCOUNTER → 2023-12-26 10:30 | Outpatient (BNVA) | payer MEDICARE, SELFPAY | PROVIDERS: PCP Registered Nurse; Visit Provider Internal Medicine | DX: E89.0 Postprocedural hypothyroidism (principal); C73 Malignant neoplasm of thyroid gland; K22.4 Dyskinesia of esophagus; J39.2 Other diseases of pharynx; Z79.890 Hormone replacement therapy | CPT/HCPCS: 99214 ==

== ENCOUNTER → 2024-02-20 11:43 | Outpatient (BNVA) | payer MEDICARE, SELFPAY | PROVIDERS: PCP Registered Nurse; Visit Provider Registered Nurse | DX: M25.562 Pain in left knee (principal); I10 Essential (primary) hypertension; E78.2 Mixed hyperlipidemia; E89.0 Postprocedural hypothyroidism | CPT/HCPCS: 80053; 80061; 81000; 85025 ==

== ENCOUNTER 2024-02-27 12:03 | Outpatient (CLI) | payer MEDICARE, SELFPAY ==
[2024-02-27 15:23] LABS: Free T4 Free Thyroxine 1.48 ng/dL (0.82-1.77); Thyroid Stimulating Hormone 1.13 uIU/mL (0.27-4.20)
[2024-03-02 12:45] LABS: Thyroglobulin AB <1 IU/mL (< or = 1)
[2024-03-02 19:24] LABS: Alternaria Alternata (M6) Ige <0.10 kU/L; Alternaria Class 0; Aspergillus fumigatus <0.10 kU/L; Aspergillus fumigatus Class 0; Bermuda Class 0; Bermuda Grass (G2) Ige <0.10 kU/L; Cat Dander (E1) Ige <0.10 kU/L; Cat Dander Class 0; Cladosporium herbarum <0.10 kU/L; Cladosporium herbarum Class 0; Cockroach <0.10 kU/L; Cockroach Class 0; Common Ragweed (Short) (W1) Ig <0.10 kU/L; Cottonwood <0.10 kU/L; Cottonwood Class 0; D. Farinae Class 0; Dermatophagoides Class 0; Dermatophagoides Farinae (D2) <0.10 kU/L; Dermatophagoides Pteronyssinus <0.10 kU/L; Dog Dander (E5) Ige <0.10 kU/L; Dog Dander Class 0; Elm (T8) Ige <0.10 kU/L; Elm Class 0; Immunoglobulin E 25 kU/L (<OR=114); Maple (Box Elder) (T1) Ige <0.10 kU/L; Maple Class 0; Maple leaf sycamore Tree <0.10 kU/L; Maple leaf sycamore Tree Class 0; Mountain cedar <0.10 kU/L; Mountain cedar Class 0; Mouse Urine Proteins <0.10 kU/L; Mouse Urine Proteins Class 0; Oak (T7) Ige <0.10 kU/L; Oak Class 0; Pecan/Hickory Tree <0.10 kU/L; Pecan/Hickory Tree Class 0; Penicillium Class 0; Penicillium Notatum (M1) Ige <0.10 kU/L; Ragweeed Class 0; Rough Marsh Elder (W16) Ige <0.10 kU/L; Rough Marsh Elder Class 0; Rough pigweed <0.10 kU/L; Rough pigweed Class 0; Russian Thistle (W11) IgE <0.10 kU/L; Russian Thistle Class 0; Timothy Grass (G6) Ige <0.10 kU/L; Timothy Grass Class 0; Walnut Tree <0.10 kU/L; Walnut Tree Class 0; White Ash Tree <0.10 kU/L; White Ash Tree Class 0; White Mulberry <0.10 kU/L; White Mulberry Class 0
[2024-03-04 12:44] LABS: Thyroglobulin Level 3.7 ng/mL
== END 2024-02-27 12:04 | disposition home or self-care (01) ==
LOC: LAB 12:04
PROVIDERS: PCP Registered Nurse; Visit Provider Internal Medicine
DX: E89.0 Postprocedural hypothyroidism (principal); C73 Malignant neoplasm of thyroid gland
CPT/HCPCS: 36415; 84432; 84439; 84443; 86003; 86800

== ENCOUNTER 2024-02-27 14:11 | Outpatient (CLI) | payer MEDICARE, SELFPAY | END 2024-02-27 14:12 | disposition home or self-care (01) | LOC: LAB 14:14 | PROVIDERS: PCP Registered Nurse; Visit Provider Specialist | DX: N39.0 Urinary tract infection, site not specified (principal) | CPT/HCPCS: 81000; 87086 ==

== ENCOUNTER → 2024-03-09 10:35 | Outpatient (BNVA) | payer MEDICARE, SELFPAY | PROVIDERS: PCP Registered Nurse; Visit Provider Internal Medicine | DX: E89.0 Postprocedural hypothyroidism (principal); K22.4 Dyskinesia of esophagus; C73 Malignant neoplasm of thyroid gland; J39.2 Other diseases of pharynx; R23.2 Flushing; Z79.890 Hormone replacement therapy | CPT/HCPCS: 99214 ==

== ENCOUNTER → 2024-03-23 12:41 | Outpatient (BNVA) | payer MEDICARE, SELFPAY | PROVIDERS: PCP Registered Nurse; Visit Provider Internal Medicine | DX: E89.0 Postprocedural hypothyroidism (principal); C73 Malignant neoplasm of thyroid gland; K22.4 Dyskinesia of esophagus; J39.2 Other diseases of pharynx; R23.2 Flushing; Z79.890 Hormone replacement therapy | CPT/HCPCS: 36415; 84432; 86800; 99214 ==

== ENCOUNTER 2024-03-27 08:51 | Outpatient (CLI) | payer MEDICARE, SELFPAY ==
--- NOTE | 2024-03-27 08:56 | FL_ITS ---
WS: [id number] Barium swallow and esophagram, Clinical Data: DYSPHAGIA,OROPHARYNGEAL PHASE/DYSPHONIA Comparison: Esophagram, 04/03/2022 Fluoroscopy time: 1min 10.392224thq # of spot films: 6 Findings: The patient swallowed the thick and thin barium, and it flowed through the hypopharynx without hesita tion. There are surgical clips in the thyroid bed. No stricture, mass, polyp or erosion was seen. The re is anterior spurring at C5-C6 with a small amount of hypopharyngeal achalasia. The barium entered the esophagus and there was normal motility throughout. No hiatal hernia, strictu re, polyp, mass, erosion or ulcer was noted. No reflux was present. FL/FL barium swallow [id number] Impression: 1. Anterior spurring at C5-C6 with minimal hypopharyngeal achalasia. 2. Negative distal esophagus with no hiatal hernia or reflux.
== END 2024-03-27 08:52 | disposition home or self-care (01) ==
LOC: RAD 08:51
PROVIDERS: PCP Registered Nurse; Visit Provider Specialist
DX: R13.12 Dysphagia, oropharyngeal phase (principal); R49.0 Dysphonia
CPT/HCPCS: 74220

== ENCOUNTER 2024-04-07 07:56 | Outpatient (CLI) | payer MEDICARE, SELFPAY ==
--- NOTE | 2024-04-07 08:04 | FL_ITS ---
WS: [email or web address] Exam: FL barium swallow modifd [id number] Date/Time of Exam: 04/07/2024 9:34 AM Reason For Exam: Other dysphagia Fluoroscopy time: 2min 43.084016wea minutes # of spot films: 0 Modified barium swallow was performed in conjunction with the speech therapy service. Oropharyngeal phase of swallowing was normal. The patient tolerated all consistencies of barium mixtu re foodstuffs without aspiration or penetration. The patient ingested a barium tablet without difficu lty or complication. FL/FL barium swallow modifd [id number] IMPRESSION: 1. No sign of aspiration or penetration. A separate report with recommendations will follow from the speech therapy serv ice.
--- NOTE | 2024-04-07 08:04 | CT_ITS ---
WS: [email or web address] CT NECK TECHNIQUE: Contrast-enhanced CT of the neck with coronal and sagittal reformatted images. CLINICAL INFORMATION: DYSHAGIA,OROPHARNGEAL PHASE/DYSPHONIA COMPARISON: 2021 DLP: 193.[address] scans at [facility] use at least one of these dose optimization techniques: automated e xposure control; mA and/or kV adjustment per patient size (includes targeted exams where dose is matc hed to clinical indication); or iterative reconstruction. FINDINGS: Paranasal sinuses and mastoid air cells are well aerated. Normal posterior nasopharynx. Nor mal parapharyngeal fat. Parotid glands are normal. Normal submandibular glands. Few prominent jugulod igastric lymph nodes slightly decreased in size since 2021. Tongue base appears normal. Normal epiglo ttis. Normal vallecula and piriform sinuses. No evidence of supraglottic or glottic mass. Slight ball ooning of the RIGHT laryngeal ventricle. Recommend correlation for RIGHT vocal cord paralysis. Moderate spondylitic changes cervical spine. Mild LEFT greater than RIGHT carotid bulb calcification. Patchy heterogeneous attenuation to the lung apices with groundglass opacities and air trapping. Prior postoperative changes stable thyroidectomy. Stable chronic wedge-shaped infarct in the LEFT cer ebellum. CT/CT neck w con* [id number] IMPRESSION: 1. Prior postoperative changes total thyroidectomy. No suspicious lesions in t he thyroidectomy bed. 2. Slight ballooning of the RIGHT laryngeal ventricle. Recommend correlation f or RIGHT vocal cord paralysis. 3. No evidence of supraglottic or glottic mass. 4. A few prominent jugulodigastric lymph nodes within normal limits and decrea sed in size compared to previous. 5. Normal salivary glands. 6. Chronic wedge-shaped infarct in the LEFT cerebellum. 7. Heterogeneous attenuation to the lung apices with groundglass opacities and air trapping. This could be further evaluated with chest CT.
[2024-04-07] MEDS: iohexol 350 mg/mL 500 mL Btl (per mL) IV (08:40)
== END 2024-04-07 07:57 | disposition home or self-care (01) ==
PROVIDERS: PCP Registered Nurse; Visit Provider Specialist
DX: R13.12 Dysphagia, oropharyngeal phase (principal); J38.01 Paralysis of vocal cords and larynx, unilateral; R05.9 Cough, unspecified; Z98.890 Other specified postprocedural states; I63.89 Other cerebral infarction; J98.4 Other disorders of lung; I51.89 Other ill-defined heart diseases
CPT/HCPCS: 70491; 74230; 92611; 94010; Q9967

== ENCOUNTER → 2024-04-21 14:20 | Outpatient (BNVA) | payer MEDICARE, SELFPAY | PROVIDERS: PCP Registered Nurse; Visit Provider Student in an Organized Health Care Education/Training Program | DX: M17.0 Bilateral primary osteoarthritis of knee (principal); M25.572 Pain in left ankle and joints of left foot | CPT/HCPCS: 73560; 73565; 73610 ==

== ENCOUNTER → 2024-05-12 10:26 | Outpatient (BNVA) | payer MEDICARE, SELFPAY | PROVIDERS: PCP Registered Nurse; Visit Provider Orthopaedic Surgery | DX: M54.9 Dorsalgia, unspecified (principal) | CPT/HCPCS: 72110; 99204 ==

== ENCOUNTER → 2024-06-19 10:38 | Outpatient (BNVA) | payer MEDICARE, SELFPAY | PROVIDERS: PCP Registered Nurse; Visit Provider Physician Assistant | DX: M17.12 Unilateral primary osteoarthritis, left knee (principal); E89.0 Postprocedural hypothyroidism; M25.562 Pain in left knee | CPT/HCPCS: 20610; 36415; 84439; 84443; 99213; J7318 ==

== ENCOUNTER → 2024-06-22 11:45 | Outpatient (BNVA) | payer MEDICARE, SELFPAY | PROVIDERS: PCP Registered Nurse; Visit Provider Internal Medicine | DX: E89.0 Postprocedural hypothyroidism (principal); C73 Malignant neoplasm of thyroid gland; K22.4 Dyskinesia of esophagus; R23.2 Flushing; R49.0 Dysphonia; Z79.890 Hormone replacement therapy | CPT/HCPCS: 99215 ==

== ENCOUNTER 2024-06-24 11:20 | Outpatient (CLI) | payer MEDICARE, SELFPAY ==
--- NOTE | 2024-06-24 11:45 | MR_ITS ---
WS: [id number] MRI LUMBAR SPINE NONCONTRAST HISTORY: Back Pain COMPARISON: 02/12/2020 TECHNIQUE: Sagittal and axial multisequence imaging is submitted. L4 anterolisthesis by 2.8 mm. Prior vertebroplasty at L5. Mild disc space narrowing and desiccation. No marrow edema. Conus terminates normally at L1-2 disc level. L1-L2: Normal. L2-L3: Mild annular disc bulging. Mild bilateral facet arthritis. No significant foraminal stenosis. There is very slight disc encroachment on the RIGHT thecal sac. L3-L4: Mild annular disc bulging with ligamentum flavum and facet arthritis. There is mild disc conta ct on the RIGHT traversing L4 nerve root. Mild RIGHT foraminal narrowing. Similar to the prior study. L4-L5: Mild annular disc bulging with moderate central stenosis and effacement of ventral thecal sac. There is mild disc encroachment upon the RIGHT traversing L5 nerve root. Moderate central stenosis, facet joint arthritis and ligamentum flavum arthropathy have increased since the prior exam. L5-S1: Mild annular disc bulging with osteophytic ridging. Moderate bilateral foraminal stenosis pred ominantly due to osteophyte disease. Mild facet arthropathy. No discitis or osteomyelitis. No epidural abscess. LEFT renal cortical cyst 6.4 mm. MR/MR lumbar spine wo/w con [id number] IMPRESSION: 1. L4 anterolisthesis by 2.8 mm. 2. Prior vertebroplasty at L5. 3. L4-5: Progression of stenosis and facet joint arthritis since the prior joe dy. There is moderate central stenosis with effacement of ventral CSF. Mild dis c encroachment upon the traversing RIGHT L5 nerve root. 4. L5-S1: Moderate bilateral foraminal stenosis. 5. L3-4: Mild disc contacting on the traversing RIGHT L4 nerve root. Mild RIGH T foraminal narrowing, similar to the prior study. 6. No discitis or osteomyelitis.
[2024-06-24] MEDS: gadobenate dimeglumine 20 mL vial IV (11:54)
== END 2024-06-24 11:21 | disposition home or self-care (01) ==
LOC: RAD 11:20
PROVIDERS: PCP Registered Nurse; Visit Provider Orthopaedic Surgery
DX: M43.16 Spondylolisthesis, lumbar region (principal); M51.37 Other intervertebral disc degeneration, lumbosacral region; M25.78 Osteophyte, vertebrae; M47.897 Other spondylosis, lumbosacral region; M48.061 Spinal stenosis, lumbar region without neurogenic claudication; M48.07 Spinal stenosis, lumbosacral region; Z87.311 Personal history of (healed) other pathological fracture
CPT/HCPCS: 72158; A9577

== ENCOUNTER → 2024-06-30 10:44 | Outpatient (BNVA) | payer MEDICARE, SELFPAY | PROVIDERS: PCP Registered Nurse; Visit Provider Orthopaedic Surgery | DX: M48.061 Spinal stenosis, lumbar region without neurogenic claudication (principal); M43.16 Spondylolisthesis, lumbar region | CPT/HCPCS: 99214 ==

== ENCOUNTER → 2024-09-22 09:18 | Outpatient (BNVA) | payer MEDICARE, SELFPAY | PROVIDERS: PCP Registered Nurse; Referring Provider Registered Nurse; Visit Provider Psychiatry & Neurology Neurology | DX: R41.3 Other amnesia (principal); I25.10 Atherosclerotic heart disease of native coronary artery without angina pectoris; E89.0 Postprocedural hypothyroidism; E55.9 Vitamin D deficiency, unspecified; M79.7 Fibromyalgia; R26.89 Other abnormalities of gait and mobility; R29.818 Other symptoms and signs involving the nervous system; R47.89 Other speech disturbances | CPT/HCPCS: 36415; 82542; 82607; 82652; 82746; 83735; 83921; 99203 ==

== ENCOUNTER 2024-10-07 08:31 | Outpatient (CLI) | payer MEDICARE, SELFPAY ==
--- NOTE | 2024-10-07 08:37 | USCV_ITS ---
Tere Rosas Age: 79 Gender: F : 1945 Exam Date: 10/07/2024 09:13 Ordering Phys: Arley Banks MD Technologist: JENSEN [place] [facility] [place]: Memory loss Risk Factors: Previous Vascular Surgery: Right Brachial BP: / Left Brachial BP: / Right Left Velocity (cm/s) Spectral Plaque Velocity (cm/s) Spectral Plaque Syst/Diast Broadening Syst/Diast Broadening 64.00/ 8.50 Prox CCA 79.40 / 6.70 74.00/ 17.30 Mid CCA 69.00 / 13.70 68.20/ 17.30 Distal CCA 63.90 / 13.70 68.80/ 18.30 Prox ICA 37.70 / 9.60 62.60/ 18.50 Mid ICA 60.30 / 23.10 34.30/ 11.10 Distal ICA 31.70 / 7.40 48.20 ECA 36.00 1.00 ICA/CCA 0.90 Antegrade Vertebral Antegrade 37.40/ 11.80 cm/s 31.40/ 8.20 cm/s Tri Subclavian Tri 76.00 145.1 0 CONCLUSIONS Right ICA stenosis <50%. Mild atheromatous plaque right carotid bulb/ICA. Left ICA stenosis <50%. Mild atheromatous plaque left carotid bulb/ICA. Intimal thickening in the common carotid arteries and internal carotid arteries bilaterally. Normal antegrade Doppler flow noted in the right vertebral artery. Normal antegrade Doppler flow noted in the left vertebral artery. Guerrero Lares MD (Electronically Signed) Final Date: 07 October 2024 17:57 S
--- NOTE | 2024-10-07 08:45 | MR_ITS ---
WS: [email or web address] MRI HEAD WITH CONTRAST TECHNIQUE: Sagittal T1, T2 axial, T2 axial FLAIR, axial susceptibility weighted imaging, axial diffus ion weighted images, and coronal T2 images were obtained. Pre and post-T1 axial and post T1 coronal i mages. ADC and FSPGR images. CLINICAL INFORMATION: R41.3 - Other amnesia COMPARISON: None. FINDINGS: No evidence of restricted diffusion to suggest acute ischemia. Ventricular system and basal cisterns are patent. Mild small vessel changes. Moderate parenchymal volume loss worse in the bilateral pariet al lobes. Small vessel changes in the libia. Normal optic chiasm and pituitary infundibulum. Moderate symmetric atrophy temporal lobes and hippocampal formations. Normal optic chiasm and pituitary infund ibulum. Several chronic infarcts in the LEFT cerebellum. Chronic lacunar infarcts in the cerebellum bilateral ly. Normal vascular flow voids at the skull base. No extra-axial fluid collections. No evidence of mass o r mass effect. Paranasal sinuses and mastoid air cells are well aerated. No hemosiderin on the susceptibly weighted images. MR/MR head wo/w con [id number] IMPRESSION: 1. No evidence of restricted diffusion to suggest acute ischemia. 2. Mild small vessel changes. Moderate parenchymal volume loss worse in the pa rietal lobes and mesial temporal lobes. This is nonspecific but can be seen wit h Alzheimer's dementia in the appropriate clinical setting. Parenchymal volume loss slightly progressed since 2019. 3. Multiple chronic infarcts in the LEFT cerebellum similar to previous. Tiny chronic lacunar infarcts in the cerebellum bilaterally similar to previous. 4. No hemosiderin on the susceptibly weighted images.
[2024-10-07] MEDS: gadobenate dimeglumine 20 mL vial IV (09:06)
== END 2024-10-07 08:32 | disposition home or self-care (01) ==
LOC: RAD 08:32
PROVIDERS: PCP Registered Nurse; Visit Provider Psychiatry & Neurology Neurology
DX: I63.542 Cerebral infarction due to unspecified occlusion or stenosis of left cerebellar artery (principal); G31.89 Other specified degenerative diseases of nervous system; R26.89 Other abnormalities of gait and mobility; I65.23 Occlusion and stenosis of bilateral carotid arteries; R41.3 Other amnesia
CPT/HCPCS: 70553; 93880

== ENCOUNTER 2024-12-08 13:15 | Outpatient (CLI) | payer MEDICARE, SELFPAY ==
[2024-12-08 13:59] LABS: Free T4 Free Thyroxine 1.49 ng/dL (0.82-1.77); Thyroid Stimulating Hormone 2.14 uIU/mL (0.27-4.20)
== END 2024-12-08 13:16 | disposition home or self-care (01) ==
LOC: LAB 13:16
PROVIDERS: PCP Registered Nurse; Visit Provider Internal Medicine
DX: E89.0 Postprocedural hypothyroidism (principal); C73 Malignant neoplasm of thyroid gland
CPT/HCPCS: 36415; 84432; 84439; 84443; 86800

== ENCOUNTER → 2024-12-11 11:35 | Outpatient (BNVA) | payer MEDICARE, SELFPAY | PROVIDERS: PCP Registered Nurse; Visit Provider Registered Nurse | DX: I10 Essential (primary) hypertension (principal); L98.9 Disorder of the skin and subcutaneous tissue, unspecified | CPT/HCPCS: 80053; 82607; 85025; 87070; 87077; 87184 ==

== ENCOUNTER → 2024-12-16 12:09 | Outpatient (BNVA) | payer MEDICARE, SELFPAY | PROVIDERS: PCP Registered Nurse; Visit Provider Internal Medicine | DX: E89.0 Postprocedural hypothyroidism (principal); C73 Malignant neoplasm of thyroid gland; K22.4 Dyskinesia of esophagus; R23.2 Flushing; R49.0 Dysphonia | CPT/HCPCS: 99214 ==

== ENCOUNTER 2024-12-24 15:22 | Outpatient (CLI) | payer MEDICARE, SELFPAY ==
--- NOTE | 2024-12-24 15:15 | US_ITS ---
WS: [email or web address] ULTRASOUND THYROID TECHNIQUE: Ultrasound of the thyroid. CLINICAL INFORMATION: thyroid cancer FINDINGS: Thyroid: Prior thyroidectomy. Normal thyroid bed. No acute findings. No cystic or solid lesions in the thyroid bed. Cervical lymphadenopathy: None. US/US thyroid [id number] IMPRESSION: Prior thyroidectomy. Normal thyroid bed. No acute findings.
== END 2024-12-24 15:23 | disposition home or self-care (01) ==
PROVIDERS: PCP Registered Nurse; Visit Provider Internal Medicine
DX: C73 Malignant neoplasm of thyroid gland (principal); Z98.890 Other specified postprocedural states
CPT/HCPCS: 76536

== ENCOUNTER → 2025-02-08 14:00 | Outpatient (BNVA) | payer MEDICARE, SELFPAY | PROVIDERS: PCP Registered Nurse; Visit Provider Psychiatry & Neurology Neurology | DX: R41.3 Other amnesia (principal); I25.10 Atherosclerotic heart disease of native coronary artery without angina pectoris; E89.0 Postprocedural hypothyroidism; E55.9 Vitamin D deficiency, unspecified; M79.7 Fibromyalgia; R26.89 Other abnormalities of gait and mobility; R29.818 Other symptoms and signs involving the nervous system; N64.4 Mastodynia | CPT/HCPCS: 0346U; 36415; 83520; 86592; 99212 ==

== ENCOUNTER 2025-02-23 09:12 | Outpatient (CLI) | payer MEDICARE, SELFPAY ==
--- NOTE | 2025-02-23 09:17 | US_ITS ---
WS: [email or web address] DIAGNOSTIC BILATERAL DIGITAL BREAST TOMOSYNTHESIS MAMMOGRAPHY WITH CAD Ultrasound LEFT breast, limited HISTORY: N64.4 - Mastodynia COMPARISON: 12/24/2022, 06/20/2022 and 10/24/2021 TECHNIQUE: Bilateral craniocaudad, mediolateral oblique, and mediolateral views are submitted with tomosynthesis and SM. Spot compression LEFT CC. Computer aided detection utilized. Breast composition: The breasts are almost entirely fatty. No masses or distortion or suspicious grouping of calcifications identified. Markers are placed along the medial and lateral anterior LEFT breast in the area of pain. There is no underlying abnormality identified. Ultrasound to follow. LEFT breast ultrasound, limited. Ultrasound directed into the areas of pain as indicated by the patient at 9:00, 11:00 and 2:00. No abnormalities are identified of any concern. There is no shadowing or mass. Focal fibroglandular tissue interspersed with fat at 2:00. US/US breast LT limited* [id number] IMPRESSION: BI-RADS: 2 - Benign. FOLLOW UP: 1 Year Follow-up No ultrasound or mammographic abnormality in the LEFT breast to correspond to t he areas of pain.
--- NOTE | 2025-02-23 09:30 | MM_ITS ---
WS: [email or web address] DIAGNOSTIC BILATERAL DIGITAL BREAST TOMOSYNTHESIS MAMMOGRAPHY WITH CAD Ultrasound LEFT breast, limited HISTORY: N64.4 - Mastodynia COMPARISON: 12/24/2022, 06/20/2022 and 10/24/2021 TECHNIQUE: Bilateral craniocaudad, mediolateral oblique, and mediolateral views are submitted with tomosynthesis and SM. Spot compression LEFT CC. Computer aided detection utilized. Breast composition: The breasts are almost entirely fatty. No masses or distortion or suspicious grouping of calcifications identified. Markers are placed along the medial and lateral anterior LEFT breast in the area of pain. There is no underlying abnormality identified. Ultrasound to follow. LEFT breast ultrasound, limited. Ultrasound directed into the areas of pain as indicated by the patient at 9:00, 11:00 and 2:00. No abnormalities are identified of any concern. There is no shadowing or mass. Focal fibroglandular tissue interspersed with fat at 2:00. MM/MM diag BI tomosynthesis [id number] IMPRESSION: BI-RADS: 2 - Benign. FOLLOW UP: 1 Year Follow-up No ultrasound or mammographic abnormality in the LEFT breast to correspond to t he areas of pain.
== END 2025-02-23 09:13 | disposition home or self-care (01) ==
LOC: RAD 09:13
PROVIDERS: PCP Registered Nurse; Visit Provider Psychiatry & Neurology Neurology
DX: N64.4 Mastodynia (principal); R92.313 Mammographic fatty tissue density, bilateral breasts
CPT/HCPCS: 76642; 77062; G0279

== ENCOUNTER → 2025-03-26 11:34 | Outpatient (BNVA) | payer MEDICARE, SELFPAY | PROVIDERS: PCP Registered Nurse; Visit Provider Registered Nurse | DX: R19.7 Diarrhea, unspecified (principal) | CPT/HCPCS: 87045; 87427; 87449 ==

== ENCOUNTER → 2025-04-02 09:14 | Outpatient (BNVA) | payer MEDICARE, SELFPAY | PROVIDERS: PCP Registered Nurse; Visit Provider Registered Nurse | DX: R19.7 Diarrhea, unspecified (principal) | CPT/HCPCS: 80053; 82607; 85025; 86140 ==

== ENCOUNTER → 2025-04-21 12:39 | Outpatient (BNVA) | payer MEDICARE, SELFPAY | PROVIDERS: PCP Registered Nurse; Visit Provider Internal Medicine | DX: E89.0 Postprocedural hypothyroidism (principal); R49.0 Dysphonia; R23.2 Flushing; C73 Malignant neoplasm of thyroid gland; K22.4 Dyskinesia of esophagus | CPT/HCPCS: 36415; 84432; 84439; 84443; 86800; 99214 ==

== ENCOUNTER → 2025-05-19 14:24 | Outpatient (BNVA) | payer MEDICARE, SELFPAY | PROVIDERS: PCP Registered Nurse; Visit Provider Psychiatry & Neurology Neurology | DX: R41.3 Other amnesia (principal); K22.89 Other specified disease of esophagus; R07.9 Chest pain, unspecified; G47.30 Sleep apnea, unspecified; G47.9 Sleep disorder, unspecified; R29.818 Other symptoms and signs involving the nervous system | CPT/HCPCS: 99212 ==

== ENCOUNTER 2025-06-16 13:24 | Outpatient (CLI) | payer MEDICARE, SELFPAY ==
[2025-06-16 16:06] LABS: Free T4 Free Thyroxine 1.84 ng/dL (0.82-1.77); Thyroid Stimulating Hormone 0.37 uIU/mL (0.27-4.20)
== END 2025-06-16 13:25 | disposition home or self-care (01) ==
PROVIDERS: PCP Registered Nurse; Visit Provider Internal Medicine
DX: E89.0 Postprocedural hypothyroidism (principal); R49.0 Dysphonia; R23.2 Flushing; C73 Malignant neoplasm of thyroid gland; K22.4 Dyskinesia of esophagus
CPT/HCPCS: 36415; 84432; 84439; 84443; 86800

== ENCOUNTER → 2025-06-23 12:06 | Outpatient (BNVA) | payer MEDICARE, SELFPAY | PROVIDERS: PCP Registered Nurse; Visit Provider Internal Medicine | DX: C73 Malignant neoplasm of thyroid gland (principal); K22.4 Dyskinesia of esophagus; E89.0 Postprocedural hypothyroidism | CPT/HCPCS: 99214 ==

== ENCOUNTER 2025-07-14 09:36 | Outpatient (CLI) | payer MEDICARE, SELFPAY ==
[2025-07-14 10:42] LABS: Free T4 Free Thyroxine 1.74 ng/dL (0.82-1.77); Thyroid Stimulating Hormone 0.12 uIU/mL (0.27-4.20)
== END 2025-07-14 09:37 | disposition home or self-care (01) ==
LOC: LAB 09:37
PROVIDERS: PCP Registered Nurse; Visit Provider Internal Medicine
DX: C73 Malignant neoplasm of thyroid gland (principal); E89.0 Postprocedural hypothyroidism
CPT/HCPCS: 36415; 83516; 84432; 84439; 84443; 86800

== ENCOUNTER → 2025-07-27 12:55 | Outpatient (BNVA) | payer MEDICARE, SELFPAY | PROVIDERS: PCP Registered Nurse; Referring Provider Psychiatry & Neurology Neurology; Visit Provider Internal Medicine | DX: R07.9 Chest pain, unspecified (principal) | CPT/HCPCS: 93005; 99204 ==

== ENCOUNTER → 2025-08-20 12:58 | Outpatient (BNVA) | payer MEDICARE, SELFPAY | PROVIDERS: PCP Registered Nurse; Visit Provider Internal Medicine | DX: E89.0 Postprocedural hypothyroidism (principal); C73 Malignant neoplasm of thyroid gland | CPT/HCPCS: 36415; 84439; 84443 ==

== ENCOUNTER 2025-08-24 08:58 | Outpatient (CLI) | payer MEDICARE, SELFPAY ==
--- NOTE | 2025-08-24 | ECG_ITS ---
23press Test Date: 2025-08-24 Pat Name: Tere Rosas Department: Room: Gender: Female Sql Report Analyst: : 1945 Requested By: Jeffrey Chapa Order Number: [id number] Quintanilla MD: Jong Calderon M.D. Interpretive Statements Procedure: A total of 0.4 mg of Lexiscan was infused over 20 seconds. The stress phase was continued for a total of 5 minutes. Sestamibi was injected 20 seconds after the Lexiscan infusion. Findings: Baseline blood pressure was 149/81 with a heart rate of 61 bpm. After Lexiscan infusion the heart rate increased to 91 bpm and blood pressure decreased to a minimum of 148/74. There is no significant change in vital signs during recovery. Resting baseline EKG showed sinus rhythm, heart rate 61, first-degree AV block. There were no ST-T wave changes or arrhythmias during the stress test Conclusion: 1. Normal EKG response to Lexiscan infusion 2. No Lexiscan induced chest pain or cardiac arrhythmia. 3. Normal blood pressure and heart rate response. 4. Nuclear myocardial perfusion scan pending; see separate report. Electronically Signed On 08-24-2025 22:18:13 CDT by Jong Calderon M.D. [email or web address]
[2025-08-24 09:51] VITALS: BMI 39.3
--- NOTE | 2025-08-24 09:55 | NMCV_ITS ---
NM akil perf SPECT r/s* [id number] Tere Rosas Age: 80 Gender: F : 1945 Exam Date: 08/24/2025 10:03 Ordering Phys: Jeffrey Chapa M.D ([email or web address]) Technologist: MONROE Nix Exam Location: [facility] Indications: cp STRESS TEST [facility] IMAGE PROTOCOL Rest/Stress 1 Lexiscan Day Radiopharmaceutical Dose (mCi) Administration Site Administered by Rest: Tc-99m 10.4 IV MONROE Nix Sestamibi Stress:Tc-99m 33 IV MONROE Reddy Sestamibi Rest: 24-Aug-2025 60 Discovery 630 Stress: 24-Aug-2025 30 Discovery 630 0.4mg Lexiscan. Images obtained in supine and prone position. SPECT RESULTS Technical Quality: Good Raw Data Analysis: Normal Image Corrections: No attenuation or motion correction applied Summed Stress Score: 1 Summed Rest Score: 1 Summed Difference Score: 1 PERFUSION FINDINGS There is a small area of mild to moderately reduced tracer counts in the inferior and inferolateral muñoz at stress that is resolved on the rest images consistent with ischemia. FUNCTIONAL RESULTS (calculated via Gated SPECT) Stress Image LV EF (%): 73 Stress EDV (mL):81 TID: 0.94 Stress ESV (mL):22 FUNCTIONAL FINDINGS: There is normal left ventricular systolic function. EF 73%. IMPRESSIONS 1. There is a small area of mild to moderate ischemia in the mid inferior and basal inferolateral wall segments. 2. There is normal left ventricular systolic function. EF 73%. Jong Calderon MD, FACC (Electronically Signed) Final Date: 24 August 2025 13:12 S
[2025-08-24 10:48] VITALS: BP 146/79; PULSE 75
== END 2025-08-24 08:59 | disposition home or self-care (01) ==
PROVIDERS: PCP Registered Nurse; Visit Provider Internal Medicine
DX: R07.9 Chest pain, unspecified (principal); I99.8 Other disorder of circulatory system
CPT/HCPCS: 36415; 78452; 93017; 93306; 96374; A9500; J2785